=== PATIENT | male | born 1990 | race American Indian/Alaskan Native ===

== ENCOUNTER 2017-05-17 10:44 | Emergency (ER) | payer OTHER ==
[2017-05-17 11:00] VITALS: RESP 18; TEMP 98.4
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
[2017-05-17 12:38] VITALS: BP 124/75; PULSE 75
[2017-05-17 13:46] VITALS: O2SAT 100
== END 2017-05-17 12:38 | disposition home or self-care (01) ==
LOC: C.ER 10:44
DX: S16.1XXA Strain of muscle, fascia and tendon at neck level, initial encounter (principal); V43.52XA Car driver injured in collision with other type car in traffic accident, initial encounter; Y92.410 Unspecified street and highway as the place of occurrence of the external cause